=== PATIENT | female | born 1995 | race Caucasian/White ===

== ENCOUNTER 2018-09-04 17:04 | Emergency (ER) | payer MEDICAID ==
[~2018-09-04] VITALS: Ht 157.5 cm; Wt 71.2 kg
[2018-09-04 17:13] VITALS: Ht 157.5 cm; Wt 71.2 kg
[2018-09-04 18:07] LABS: BASOPHIL % 0.9 % (0-2); PLATELET COUNT 330 x10^3mcL (130-400); RED CELL DISTRIBUTION WIDTH 12.5 % (11.5-14.5)
[2018-09-04 18:08] LABS: UA SPECIFIC GRAVITY >=1.030 (1.005-1.035); microscopic required? YES; urine erythrocyte NEGATIVE (NEGATIVE)
[2018-09-04 19:12] VITALS: BP 121/69
== END 2018-09-04 19:12 | disposition home or self-care (01) ==
LOC: ED 17:04
PROVIDERS: Emergency Medicine
DX: O26.891 Other specified pregnancy related conditions, first trimester (principal); R25.2 Cramp and spasm; Z87.42 Personal history of other diseases of the female genital tract